=== PATIENT | male | born 1990 | race Caucasian/White ===

== ENCOUNTER 2017-07-22 16:56 | Emergency (ER) | payer MEDICAID ==
[~2017-07-22] VITALS: Ht 188 cm; Wt 73.0 kg
[2017-07-23] MEDS ORDERED: KETOROLAC 60MG/2ML VIAL IM ONE (00:15)
[2017-07-23 01:20] VITALS: BP 125/74
== END 2017-07-23 01:22 | disposition home or self-care (01) ==
LOC: ER 20:03
DX: M54.2 Cervicalgia (principal); M47.892 Other spondylosis, cervical region; V43.52XA Car driver injured in collision with other type car in traffic accident, initial encounter; Y93.89 Activity, other specified; Y92.488 Other paved roadways as the place of occurrence of the external cause
CPT/HCPCS: 72125; 96372; 99284; J1885; Z7610